=== PATIENT | female | born 1980 | race African-American/Black ===

== ENCOUNTER 2016-11-25 21:36 | Emergency (ER) | payer MEDICAID ==
[~2016-11-25] VITALS: Ht 172.7 cm; Wt 78.0 kg
[~2016-11-25 21:36] MED LIST: DEPO150I IM; LORT5TAB PO; PROM1SUP12 PR
[2016-11-25 21:38] VITALS: BP 131/77; PULSE 70; RESP 16; TEMP 98.2; O2SAT 99
== END 2016-11-25 23:17 | disposition left against medical advice (07) ==
LOC: NED 21:36
DX: Z53.21 Procedure and treatment not carried out due to patient leaving prior to being seen by health care provider (principal)
CPT/HCPCS: 99281

== ENCOUNTER 2017-07-11 09:08 | Emergency (ER) | payer MEDICAID ==
[2017-07-11 09:11] VITALS: BP 133/67; PULSE 110; RESP 20; TEMP 97.8; O2SAT 99
[2017-07-11] MEDS ORDERED: IBUP200T47 PO (09:15)
--- NOTE | 2017-07-11 09:22 | PD ---
HPI Chief Complaint: Pain: Acute or Chronic Time Seen by Provider: 09:14 Travel History International Travel<30 days: No Contact w/Intl Traveler<30days: No Traveled to known affect area: No History of Present Illness HPI 37-year-old female presents to the emergency department for evaluation of right knee pain. She states she has had a lump to the right knee and pain intermittently to the right knee for "a long time". However, 2 days ago, she states that she hit it against her car door. She states the pain really increased last night. Current pain is 10/10 to the right medial knee without radiation. Pain is aching, worse with ambulation and movement. No fevers or chills. She has no chronic medical problems and takes no prescribed medications. She took ibuprofen 8:00 this morning for the pain. She denies any chance of . Mild severity. PFSH Past Medical History Arthritis: Yes Autoimmune Disease: No Blood Disorders: No Cancer: No Cardiovascular Problems: No Chemotherapy: No Diminished Hearing: No Endocrine: No Gastrointestinal Disorders: Yes (GALLSTONES) GERD: No Genitourinary: Yes (UTI) Hepatitis: No Hiatal Hernia: No Immune Disorder: No Kidney Stones: No Musculoskeletal: Yes Neurologic: No Psychiatric: No Reproductive: No Respiratory: No Immunizations Current: No Radiation Therapy: No Renal Failure: No Ulcer: No Past Surgical History Abdominal Surgery: Yes AICD: No Appendectomy: No Cardiac Surgery: No Cholecystectomy: Yes Ear Surgery: No Endocrine Surgery: No Eye Surgery: No Genitourinary Surgery: No Gynecologic Surgery: No Oral Surgery: No Pacemaker: No Thoracic Surgery: No Social History Alcohol Use: No Tobacco Use: No Substance Use: No Allergies-Medications (Allergen,Severity, Reaction): Coded Allergies: No Known Allergies (Verified Adverse Reaction, Unknown, 07/11/17) Reported Meds & Prescriptions Reported Meds & Active Scripts Active Reported Ibuprofen 200 Mg Tab 800 Mg PO ONCE Review of Systems Except as stated in HPI: all other systems reviewed are Neg Physical Exam Narrative GENERAL: Well-nourished, well-developed female patient, afebrile. SKIN: Focused skin assessment warm/dry. No erythema or warmth over right knee. HEAD: Normocephalic. Atraumatic. EYES: No scleral icterus. No injection or drainage. NECK: Supple, trachea midline. No JVD or lymphadenopathy. CARDIOVASCULAR: Regular rate and rhythm without murmurs, gallops, or rubs. Right pedal pulse is 2+. RESPIRATORY: Breath sounds equal bilaterally. No accessory muscle use. Lung sounds are clear to auscultation. MUSCULOSKELETAL: No cyanosis, or edema. Patient has tenderness over right medial knee. Negative Ajith's. Patient can easily flex the knee to 90. She has full sensation to the distal right lower extremity. No tenderness to palpation of the patella Data Data Last Documented VS Vital Signs Date Time Temp Pulse Resp B/P (MAP) Pulse Ox O2 Delivery O2 Flow Rate FiO2 07/11/17 09:11 97.8 110 20 133/67 (89) 99 Orders Orders Knee, Complete (4vws) (07/11/17 ) Splint Or Brace Apply/Monitor (07/11/17 09:56) MDM Medical Decision Making Medical Screen Exam Complete: Yes Emergency Medical Condition: Yes Medical Record Reviewed: Yes Interpretation(s) x-ray right knee - CONCLUSION: 1. No fracture is identified. However, there is a very large joint effusion. 2. There is mild medial compartment osteoarthritis with possible loose body medially. Differential Diagnosis Knee contusion versus knee sprain versus knee fracture versus chronic knee pain Narrative Course 37-year-old female presents to the emergency department for evaluation of right knee pain after she hit it against a car door. No evidence of infection on exam. She does appear well. She is slightly tachycardic in triage, most likely due to pain. She took ibuprofen at 8 AM this morning. X-ray of the right knee is ordered and pending. X-ray of the right knee shows no fracture, but large joint effusion. She also has medial compartment osteoarthritis. Patient is provided a hinged knee brace. She is offered crutches, but declines. She is instructed to ice, elevate, ibuprofen for pain. She is to follow-up with her primary care physician and orthopedist if pain continues or does not improve in the next few days. She agrees to this. The patient was discharged in stable condition with instructions, including return instructions and follow up instructions. Diagnosis Primary Impression: Right knee sprain Qualified Codes: S83.91XA - Sprain of unspecified site of right knee, initial encounter Referrals: Orthopedist call for appointment Patient Instructions: General Instructions, Knee Sprain (ED) Additional Instructions: Elevate. Ice for 20 minutes on, 20 minutes off. Wear knee brace for support. Continue ibuprofen every 6-8 hours as needed for pain. Follow-up with an orthopedist. Return to the emergency department for any acute worsening of symptoms. Med/Other Pt SpecificInfo: No Change to Meds Disposition: 01 DISCHARGE HOME Condition: Stable Redd,Breanne ARRIAGA July 11, 2017 09:22
--- NOTE | 2017-07-11 09:52 | RADRPT ---
EXAM DATE/TIME: 07/11/2017 09:41 [facility] COMPARISON: No previous studies available for comparison. INDICATIONS : Right knee pain. MEDICAL HISTORY : None. SURGICAL HISTORY : None. ENCOUNTER: Initial ACUITY: 2 days PAIN SCORE: 10/10 LOCATION: Right medial knee. FINDINGS: 4 views of the right knee demonstrate no fracture or dislocation. Mineralization is within normal almanzar its. There is mild medial joint space narrowing with a small medial compartment osteophytes. Ossific density measuring 11 mm is at the medial aspect of the knee joint. There is a very large joint effusi on. No soft tissue abnormality or radiopaque foreign body is identified. CONCLUSION: 1. No fracture is identified. However, there is a very large joint effusion. 2. There is mild medial compartment osteoarthritis with possible loose body medially. Franko Meyer MD on July 11, 2017 at 9:48 Board Certified Radiologist. This report was verified electronically.
== END 2017-07-11 10:35 | disposition home or self-care (01) ==
LOC: NEPK 09:08
DX: S83.91XA Sprain of unspecified site of right knee, initial encounter (principal); W22.8XXA Striking against or struck by other objects, initial encounter
CPT/HCPCS: 73564; 99283; L1810